=== PATIENT | female | born 1940 | race Caucasian/White ===

== ENCOUNTER 2022-11-11 10:36 | Outpatient (OUT) | payer MEDICARE, SELFPAY ==
--- NOTE | 2022-11-11 11:01 | MR_ITS ---
[address] [address] Patient Name: SHANAE HERNANDEZ MRN: [id number] date: 1940 Sex: F Assigned Patient Location: MRI Current Patient Location: MRI Accession/Order Number: [id number] Exam Date: 11/11/2022 11:15 Report Date: 11/11/2022 16:35 At the request of: NON-STAFF PHYSICIAN Procedure: MR lumbar spine wo con MRI LUMBAR SPINE WITHOUT CONTRAST, 11/11/2022. HISTORY: Chronic low back pain. Bilateral leg pain and weakness. COMPARISON: MRI of lumbar spine, 11/07/2020. TECHNIQUE: Sagittal T1, T2, STIR, axial T1 and T2 images obtained. FINDINGS: Grade 1 spondylolisthesis at L4-L5 measures 8 mm. This is stable. No acute compression fractures. Signal in the bone marrow spaces normal. No bone marrow edema. L5-S1, severe degenerative disc disease stable. No spinal canal stenosis. Mild facet arthropathy. Disc space narrowing and osteophytes result in moderate right and severe left foraminal narrowing. This level is stable. L4-L5, severe facet arthropathy bilaterally. Spondylolisthesis measures 8 mm. Moderate degenerative disc disease. Diffuse disc bulge. These findings result in severe spinal stenosis. Spondylolisthesis, disc bulge and facet hypertrophy results in severe bilateral foraminal narrowing. This level is stable. L3-L4, mild degenerative disc disease. Diffuse disc bulge. Moderate facet arthropathy. Mild spinal canal stenosis. Mild left foraminal narrowing. This level is stable. L2-L3, severe degenerative disc disease. No spinal stenosis. Disc space narrowing and osteophytes result in moderate right foraminal narrowing. L1-L2, no spinal stenosis. Severe degenerative disc disease. Disc space narrowing results in moderate right foraminal narrowing. This level is stable. Severe multilevel degenerative disc disease in lower thoracic spine stable. No compression of the conus medullaris. No abnormal signal in the distal spinal cord. No paraspinal masses. IMPRESSION: 1. Stable MRI of the lumbar spine. 2. Severe multilevel degenerative disc disease and facet arthropathy unchanged. 3. At L4-L5, there is grade 1 spondylolisthesis resulting in severe spinal stenosis and severe bilateral foraminal narrowing stable from the prior. 4. Foraminal narrowing at multiple additional levels as described above. Electronically authenticated by: GINI BALDWIN Date: 11/11/2022 16:35
== END 2022-11-11 10:37 ==
PROVIDERS: PCP Family Medicine; Visit Provider Physician Assistant Medical
DX: M54.9 Dorsalgia, unspecified (principal); M54.17 Radiculopathy, lumbosacral region; M47.9 Spondylosis, unspecified; M46.96 Unspecified inflammatory spondylopathy, lumbar region; M51.36 Other intervertebral disc degeneration, lumbar region; M43.16 Spondylolisthesis, lumbar region; M48.061 Spinal stenosis, lumbar region without neurogenic claudication
CPT/HCPCS: 72148